=== PATIENT | male | born 1975 | race Caucasian/White ===

== ENCOUNTER 2021-03-06 23:15 | Emergency (ER) | payer OTHER ==
[~2021-03-06] VITALS: Ht 177.8 cm; Wt 99.8 kg
[2021-03-06 23:25] VITALS: BP_SYST 105
[2021-03-07 00:41] LABS: HEMATOCRIT 47.3 % (36-54); HEMOGLOBIN 15.5 g/dL (14.0-18.0); MEAN CORPUSCULAR HEMOGLOBIN 32 pg (27-31); MEAN CORPUSCULAR HGB CONC 33 % (32-36); MEAN CORPUSCULAR VOLUME 98 fL (79.0-98.0); PLATELET COUNT (AUTO) 222 K/uL (130-430); RED BLOOD CELL COUNT(AUTO) 4.82 MIL/uL (4.2-6.2); RED CELL DISTRIBUTION WIDTH 15.2 % (9.0-15.0); WHITE BLOOD COUNT (AUTO) 3.7 K/uL (4.8-10.8)
[2021-03-07 00:44] LABS: CALCIUM 7.9 mg/dL (8.4-11.0); CREATININE 0.93 mg/dL (0.55-1.30)
[2021-03-07 00:51] LABS: ALBUMIN 3.8 g/dL (3.4-4.8); TOTAL BILIRUBIN 0.2 mg/dL (0.0-1.0)
[2021-03-07 01:17] LABS: ATYPICAL LYMPHOCYTES % 3 % (0-0); BASOPHILS % (MANUAL) 0 % (0-2); EOSINOPHILS % (MANUAL) 3 % (0-7); LYMPHOCYTES % (MANUAL) 30 % (20-46); MONOCYTES % (MANUAL) 9 % (0-11)
[2021-03-07 02:27] VITALS: BP_SYST 138
== END 2021-03-07 02:27 | disposition short-term general hospital (02) ==
LOC: SED 23:15
DX: G93.40 Encephalopathy, unspecified (principal); F10.229 Alcohol dependence with intoxication, unspecified; Y90.8 Blood alcohol level of 240 mg/100 ml or more; Z20.822 Contact with and (suspected) exposure to COVID-19
CPT/HCPCS: 36415; 70450; 72125; 76376; 80053; 82550; 85007; 85027; 87426; 93005; 99285; G0482

== ENCOUNTER 2021-04-28 07:08 | Inpatient (IN) | payer OTHER, SELFPAY ==
[~2021-04-28] VITALS: Ht 175.3 cm; Wt 112.9 kg
[2021-04-28] VITALS (18 sets, daily range): BP systolic 94–135
--- NOTE | 2021-04-28 07:10 | NUR ---
Placed in room 7 . Placed on front desk monitor, blood pressure machine and pulse oximeter. To gown for exam. Side rails up.
--- NOTE | 2021-04-28 07:13 | NUR ---
ER at bedside examining patient.
--- NOTE | 2021-04-28 07:20 | NUR ---
PT BIB [facility] DUE TO HIS CALLING 911. PER EMS, STATES THAT SHE THOUGHT HE WAS DRINKING WATER ALL NIGHT, BUT SHE LATER FOUND OUT IT WAS VODKA. PT IS ASLEEP NOW AND SEEMS COMFORTABLE, BUT IS VERY DIFFICULT TO AROUSE. PT IS ON 4L NC WITH A SAT OF 92%.
[2021-04-28 07:38] LABS: BASOPHILS % (AUTO) 0.3 % (0.0-2.0); EOSINOPHILS # (AUTO) 0.1 K/uL (0.0-0.4); EOSINOPHILS % (AUTO) 1.7 % (0.0-4.0); HEMATOCRIT 46.1 % (36-54); HEMOGLOBIN 15.3 g/dL (14.0-18.0); LYMPHOCYTES # (AUTO) 1.7 K/uL (1.0-5.5); LYMPHOCYTES % (AUTO) 22.4 % (20.5-51.5); MEAN CORPUSCULAR HEMOGLOBIN 32 pg (27-31); MEAN CORPUSCULAR HGB CONC 33 % (32-36); MEAN CORPUSCULAR VOLUME 95 fL (79.0-98.0); MONOCYTES # (AUTO) 0.4 K/uL (0.0-1.0); MONOCYTES % (AUTO) 4.9 % (1.7-9.3); NEUTROPHILS # (AUTO) 5.4 K/uL (1.8-7.7); NEUTROPHILS % (AUTO) 70.7 % (40.0-70.0); PLATELET COUNT (AUTO) 191 K/uL (130-430); RED BLOOD CELL COUNT(AUTO) 4.83 MIL/uL (4.2-6.2); RED CELL DISTRIBUTION WIDTH 16.2 % (9.0-15.0); WHITE BLOOD COUNT (AUTO) 7.7 K/uL (4.8-10.8)
[2021-04-28 07:55] LABS: CALCIUM 7.6 mg/dL (8.4-11.0); CREATININE 0.78 mg/dL (0.55-1.30); POTASSIUM 3.9 mmol/L (3.5-5.1)
[2021-04-28 07:56] LABS: INR 0.9 (0.80-1.20); PROTHROMBIN TIME 9.4 SECS (9.5-12.5)
[2021-04-28 08:02] LABS: ALBUMIN 3.6 g/dL (3.4-4.8); TOTAL BILIRUBIN 0.2 mg/dL (0.0-1.0)
[2021-04-28] MEDS ORDERED: FOLIC ACID 1 MG, THIAMINE HCL 100 MG, MAGNESIUM SULFATE 1 GM, MVI 10 ML in NACL 0.9% 1,... IV ONE (08:15)
[2021-04-28 08:21] LABS: BILIRUBIN,URINE NEGATIVE (NEGATIVE); BLOOD, URINE 1+ (NEGATIVE); COLOR,URINE YELLOW (YELLOW); GLUCOSE,URINE NEGATIVE (NEGATIVE); KETONES,URINE NEGATIVE (NEGATIVE); LEUKOCYTE ESTERASE ,URINE NEGATIVE (NEGATIVE); NITRITE, URINE NEGATIVE (NEGATIVE); PH,URINE 5.5 (5.0-8.0); PROTEIN URINE 2+ (NEGATIVE); UROBILINOGEN,URINE 0.2 (0.2-1.0)
[2021-04-28 08:24] LABS: CLARITY/URINE HAZY (CLEAR)
[2021-04-28 08:34] LABS: BARBITURATE, URINE NEGATIVE (NEG <=200); BENZODIAZEPINE, URINE POSITIVE (NEG <=150); CANNABINOID, URINE NEGATIVE (NEG <=50); COCAINE, URINE NEGATIVE (NEG <=150); METHAMPHETAMINES SCREEN,URINE NEGATIVE (NEG <=500); OPIATE, URINE NEGATIVE (NEG <=100); PHENCYCLIDINE SCREEN,URINE NEGATIVE (NEG <=25); UR TRICYCLIC ANTIDEPRESSANTS NEGATIVE (NEG <=300); URINE AMPHETAMINE NEGATIVE (NEG <=500); URINE METHADONE NEGATIVE (NEG <=200); URINE OXYCODONE SCREEN NEGATIVE (NEG <=100); URINE PROPOXYPHENE SCREEN NEGATIVE (NEG <=300)
--- NOTE | 2021-04-28 08:40 | NUR ---
Called pharmacy to request Banana Bag, will call me back
[2021-04-28 08:41] LABS: BACTERIA,URINE None Seen /HPF (None Seen); URINE AMORPHOUS URATE 3+ /HPF (None Seen); WBC,URINE 0-3 /HPF (0-3)
[2021-04-28 08:42] LABS: HYALINE CASTS, URINE 0-10 /LPF (None Seen)
[2021-04-28] MEDS ORDERED: THIAMINE HCL 100 MG, MAGNESIUM SULFATE 1 GM in NS 100 ML IV ONE (09:00)
[2021-04-28] MEDS ORDERED: FOLIC ACID 1 MG, MVI 10 ML in NACL 0.9% 1,000 ML IV ONE (09:00)
--- NOTE | 2021-04-28 09:00 | NUR ---
Radiology at bedside for CXR
[2021-04-28] MEDS ORDERED: POTASSIUM CHLORIDE 20 MEQ TAB.PRT.SR PO PRN (09:45)
[2021-04-28] MEDS ORDERED: ONDANSETRON HCL 4 MG/2 ML VIAL IVP PRN (09:45)
[2021-04-28] MEDS ORDERED: MUPIROCIN 2% TOPICAL OINTMENT 22 GM NS PRN (09:45)
[2021-04-28] MEDS ORDERED: DOCUSATE SODIUM 100 MG CAPSULE PO PRN (09:45)
[2021-04-28] MEDS ORDERED: MAGNESIUM SULFATE 50 ML IV PRN (09:45)
--- NOTE | 2021-04-28 09:45 | NUR ---
Dr. Medley at bedside
--- NOTE | 2021-04-28 10:50 | NUR ---
Patient will be admitted to care of DR SCOTT. Admitted to ICU. Will go to room 3. Belongings list completed. Complete and up to date summary report printed. SBAR report to be given at bedside with opportunity for questions.
--- NOTE | 2021-04-28 11:00 | NUR ---
ADMISSION NOTE Received patient from ER via mary, received report from Itzel ESCOBAR. Patient admitted with diagnosis of acute respiratory failure. Patient oriented to hospital routine, call light, toileting and safety-patient verbalized understanding.
[2021-04-28] MEDS: D5NS 1,000 ML IV SCH ×2 (14:21→21:47)
--- NOTE | 2021-04-28 14:40 | NUR ---
patient intubated by Dr. Forrest. Other orders are given.
[2021-04-28] MEDS ORDERED: NALOXONE HCL 0.4 MG/ML AMP (NARCAN) IVP PRN (14:45)
[2021-04-28] MEDS ORDERED: ROCURONIUM BROMIDE 10 MG/ML (ZEMURON) IV ONE (15:20)
[2021-04-28] MEDS ORDERED: ETOMIDATE 20 MG/ 10 ML VIAL (AMIDATE) IVP ONE (15:20)
--- NOTE | 2021-04-28 15:28 | NUR ---
CONSULTATION PAGED/CALLED Reason for Consultation: [] RESPIRATORY FAILURE Person Who was Notified: [] DIRECTLY PAGED DR OGLESBY Consulting Physician: [] DR OGLESBY Data Technician Specialty: [] PULMO Ordering Physician: [] DR SCOTT
[2021-04-28] MEDS ORDERED: PANTOPRAZOLE SODIUM 40 MG/VIAL (PROTONIX) IVP ONE (15:30)
[2021-04-28] MEDS: MIDAZOLAM IN NACL,ISO-OSMOT/PF 100 ML IV PRN (15:36)
[2021-04-28] MEDS: MORPHINE SULFATE IN 0.9 % NACL 100 ML IV PRN (15:43)
[2021-04-28 15:54] LABS: INR 0.9 (0.80-1.20); PROTHROMBIN TIME 9.6 SECS (9.5-12.5)
[2021-04-28 15:58] LABS: THYROID STIMULATING HORMONE 2.23 uIu/mL (0.36-3.74)
[2021-04-28] MEDS: PIPERACILLIN/TAZO 3.375/DEX-IS 50 ML IV SCH (16:56)
--- NOTE | 2021-04-28 17:00 | NUR ---
Patient has a chest xray. Tolerated without distress.
[2021-04-28] MEDS ORDERED: SODIUM BICARBONATE 8.4% VIAL 50 MEQ/50 ML VIAL INJ ONE (17:15)
[2021-04-28] MEDS ORDERED: NACL 0.9% 1,000 ML IV ONE (17:30)
--- NOTE | 2021-04-28 18:20 | NUR ---
patient has been taken to CT scan and back. patient tolerated without distress.
--- NOTE | 2021-04-28 19:40 | NUR ---
Pt report received. Pt resting quietly, sedated, VSS. Mechanically ventilated with ETT size 7.5, secure at 25 to lip line. Vent settings: A/C, 16, 500, 70%, 5. NGT to left nare, newly placed PICC to RUE, awaiting x-ray confirmation of placement prior to use. PIV LHA with D5NS infusing at 150 mL/hr. Morphine and Versed Drips to PIV LFA both infusing at 2 mg/hr. PIV sites patent and secure, no s/s infiltration. F/C patent and secure with yellow urine to bag.
--- NOTE | 2021-04-28 19:55 | NUR ---
X-ray at bedside. Pt moving extremities and reaching for ETT. Versed and Morphine drip rates both increased to 3 mg/hr. Pt becomes relaxed. PICC line placement confirmed by PICC Line Nurse and NGT placement confirmed. Both okay to use.
--- NOTE | 2021-04-28 20:10 | NUR ---
Pt's sister present to bedside. Updated on POC.
--- NOTE | 2021-04-28 20:25 | NUR ---
Pt's at bedside. Updated on plan of care.
--- NOTE | 2021-04-28 20:45 | NUR ---
Pt reaching for ETT. Morphine and Versed drips both increased to 4 mg/hr. Pt becomes relaxed.
--- NOTE | 2021-04-28 20:50 | NUR ---
Pt reaches for ETT. Versed and Morphine drips increased to 5 mg/hr and Ativan 2 mg IVP administered. Pt becomes calm and VSS. Seizure pads to Bilat side rails. Family members still present to bedside, no needs verbalized.
[2021-04-28] MEDS: LORazepam 2 MG/ML VIAL IVP PRN (20:51)
[2021-04-28] MEDS: ENOXAPARIN SODIUM 40 MG/0.4 ML SYRINGE SUBCUT SCH (20:52)
--- NOTE | 2021-04-28 21:17 | NUR ---
Family members leave unit. states to call her ([phone]) at any time should there be any changes in pts condition.
--- NOTE | 2021-04-28 22:15 | NUR ---
DR. TYLER THURMAN MD AT [phone], DR. ALEE GONZALEZ BREAKFAST SERVER ANSWERED THE PHONE.
[2021-04-29] VITALS (29 sets, daily range): BP systolic 88–140
--- NOTE | 2021-04-29 | NUR ---
Bilateral Soft Wrist restraints applied per order of Dr. Lanier.
--- NOTE | 2021-04-29 00:10 | NUR ---
B/P 87/47. Morphine rate decreased to 3 mg/hr.
[2021-04-29] MEDS: PIPERACILLIN/TAZO 3.375/DEX-IS 50 ML IV SCH ×4 (00:15→18:11)
--- NOTE | 2021-04-29 00:30 | NUR ---
B/P 86/46. Morphine drip decreased to 2 mg/hr.
[2021-04-29] MEDS: LORazepam 2 MG/ML VIAL IVP PRN ×3 (02:42→11:34)
--- NOTE | 2021-04-29 02:45 | NUR ---
Pt waking up, squirming in bed, HR 122, B/P 112/56. Soft wrist restraints and seizure precautions remain in place. Ativan 2 mg given IVP, Versed drip increased to 5 mg/hr and Morphine drip increased to 3 mg/hr.
[2021-04-29] MEDS ORDERED: MORPHINE SULFATE 10 MG/ML VIAL ONE ×2 (03:13→03:17)
--- NOTE | 2021-04-29 03:30 | NUR ---
Pt moving BUE and squirming in bed. Bilateral soft wrist restraints in place. B/P 112/56. Morphine drip increased to 4 mg/hr, Versed drip increased to 6 mg/hr.
[2021-04-29] MEDS: MORPHINE SULFATE IN 0.9 % NACL 100 ML IV PRN ×3 (03:32→18:55)
[2021-04-29] MEDS: D5NS 1,000 ML IV SCH ×3 (03:44→18:49)
--- NOTE | 2021-04-29 03:51 | NUR ---
Pt's sister, Marly, called to provide her phone number ([phone]).
--- NOTE | 2021-04-29 05:05 | NUR ---
Pt's calls, status update provided. She states that she will come visit around 0830 this AM.
--- NOTE | 2021-04-29 05:19 | NUR ---
Pt moving BUE. Morphine drip increased to 5 mg/hr.
--- NOTE | 2021-04-29 06:20 | NUR ---
Pt moving BUE and opening eyes. Pt reassured. Versed and morphine drips both increased to 7 mg/hr. VSS.
[2021-04-29 06:46] LABS: BASOPHILS % (AUTO) 0.3 % (0.0-2.0); EOSINOPHILS # (AUTO) 0.1 K/uL (0.0-0.4); EOSINOPHILS % (AUTO) 2.3 % (0.0-4.0); HEMATOCRIT 34.4 % (36-54); HEMOGLOBIN 11.6 g/dL (14.0-18.0); LYMPHOCYTES # (AUTO) 0.7 K/uL (1.0-5.5); LYMPHOCYTES % (AUTO) 12.3 % (20.5-51.5); MEAN CORPUSCULAR HEMOGLOBIN 32 pg (27-31); MEAN CORPUSCULAR HGB CONC 34 % (32-36); MEAN CORPUSCULAR VOLUME 95 fL (79.0-98.0); MONOCYTES # (AUTO) 0.7 K/uL (0.0-1.0); MONOCYTES % (AUTO) 12.2 % (1.7-9.3); NEUTROPHILS % (AUTO) 72.9 % (40.0-70.0); PLATELET COUNT (AUTO) 113 K/uL (130-430); RED CELL DISTRIBUTION WIDTH 15.5 % (9.0-15.0); WHITE BLOOD COUNT (AUTO) 5.4 K/uL (4.8-10.8)
[2021-04-29 06:51] LABS: CREATININE 0.79 mg/dL (0.55-1.30); POTASSIUM 3.4 mmol/L (3.5-5.1)
--- NOTE | 2021-04-29 07:00 | NUR ---
Pt moving BUE, HR 129. Morphine and Versed drips both increased to 7 mg/hr.
--- NOTE | 2021-04-29 07:30 | NUR ---
Opening Received report from endorsing RN. Pt intubated on ventilator with sedation but also arousable and attempting to pull lines. Bilateral wrist restraints in place for safety. NGT in place, clamped. Bansal in place draining alyssa urine to gravity.
[2021-04-29] MEDS: MIDAZOLAM IN NACL,ISO-OSMOT/PF 100 ML IV PRN ×2 (07:59→16:38)
[2021-04-29 08:01] LABS: CALCIUM 6.7 mg/dL (8.4-11.0)
[2021-04-29] MEDS ORDERED: FOLIC ACID 1 MG, THIAMINE HCL 100 MG, MAGNESIUM SULFATE 1 GM, MVI 10 ML in NACL 0.9% 1,... IV SCH (09:00)
[2021-04-29] MEDS: PANTOPRAZOLE SODIUM 40 MG/VIAL (PROTONIX) IVP SCH (09:14)
[2021-04-29] MEDS ORDERED: CALCIUM CARBONATE 650 MG TABLET PO SCH (10:00)
[2021-04-29] MEDS ORDERED: CALCIUM 500 MG/TAB PO ONE (10:30)
--- NOTE | 2021-04-29 10:40 | NUR ---
ANGEL note: Faxed clinical info to [facility] # [phone]. The pt was intubated in ICU yesterday at 1440 pm, comatose, not stable for transfer.
[2021-04-29] MEDS: ACETAMINOPHEN 325 MG TABLET PO PRN (11:34)
--- NOTE | 2021-04-29 14:47 | NUR ---
Pt's at bedside, updated.
--- NOTE | 2021-04-29 16:32 | NUR ---
Dietitian Recommendations 1) Recommend Pivot @ 60 mL/hr with FWF of 160 ml Q4H, initiate at 10 mL/hr, advance by 10 mL Q6H, as tolerated. (this EN regimen provides 1440 mL total volume, 2160 kcals, 135 gm protein, 1093 mL free fluids, 960 mL in FWF, total fluids: 2053 mL) 2) the EN regimen above meets 94% of energy needs, 100% of protein needs and 99% of fluid needs KW, RD
--- NOTE | 2021-04-29 19:26 | NUR ---
Closing Endorsed plan of care to RN. Pt's sister at bedside visiting.
--- NOTE | 2021-04-29 19:30 | NUR ---
Opening note, Received report and assumed care. Family at bedside; information provided. Vent to ETT in place; tolerating vent setting on AC 16. Sedated with Versed infusing to AMINTA picc; patent. Bansal catheter in place and draining to gravity. will continue to monitor.
[2021-04-29] MEDS: ACETYLCYSTEINE 10% 4 ML VIAL (RT) INH SCH (20:15)
--- NOTE | 2021-04-29 21:15 | NUR ---
RT NOTES ASSISTED IN TRANSFERRING PT FOR A CT SCAN. PT BAGGED DURING TRANSFER WITH 100% FIO2 VIA AMBU BAG. NO SOB NOTED. PLACED BACK ON VENT IN ICU @ 2125. 7.5 ETT SECURE AT 25 CM LIP LINE. SX'D MOD AMOUNT PINKISH WHITE SPUTUM.
--- NOTE | 2021-04-29 21:15 | NUR ---
Going to CT via gurney; polygraph technician and RT at bedside. Patient connected to portable monitor and O2 monitoring. Continuing with sedation with Versed. Will continue to monitor as per unit protocol.
--- NOTE | 2021-04-29 21:40 | NUR ---
Back from CT. Patient tolerated procedure well. Waiting for results.
[2021-04-29] MEDS: ENOXAPARIN SODIUM 40 MG/0.4 ML SYRINGE SUBCUT SCH (22:30)
[2021-04-30] VITALS (30 sets, daily range): BP systolic 89–142
[2021-04-30] MEDS: PIPERACILLIN/TAZO 3.375/DEX-IS 50 ML IV SCH ×4 (00:36→18:35)
[2021-04-30] MEDS: D5NS 1,000 ML IV SCH ×4 (01:30→20:34)
[2021-04-30 06:40] LABS: BASOPHILS % (AUTO) 0.3 % (0.0-2.0); EOSINOPHILS # (AUTO) 0.2 K/uL (0.0-0.4); EOSINOPHILS % (AUTO) 2.2 % (0.0-4.0); HEMATOCRIT 32.1 % (36-54); HEMOGLOBIN 10.7 g/dL (14.0-18.0); LYMPHOCYTES # (AUTO) 0.6 K/uL (1.0-5.5); LYMPHOCYTES % (AUTO) 8.1 % (20.5-51.5); MEAN CORPUSCULAR HEMOGLOBIN 32 pg (27-31); MEAN CORPUSCULAR HGB CONC 33 % (32-36); MEAN CORPUSCULAR VOLUME 97 fL (79.0-98.0); MONOCYTES # (AUTO) 0.4 K/uL (0.0-1.0); MONOCYTES % (AUTO) 5.3 % (1.7-9.3); NEUTROPHILS # (AUTO) 6.7 K/uL (1.8-7.7); NEUTROPHILS % (AUTO) 84.1 % (40.0-70.0); PLATELET COUNT (AUTO) 87 K/uL (130-430); RED BLOOD CELL COUNT(AUTO) 3.31 MIL/uL (4.2-6.2); RED CELL DISTRIBUTION WIDTH 16.1 % (9.0-15.0)
[2021-04-30 07:06] LABS: CALCIUM 7.6 mg/dL (8.4-11.0); CREATININE 0.71 mg/dL (0.55-1.30); POTASSIUM 3.8 mmol/L (3.5-5.1)
--- NOTE | 2021-04-30 07:22 | NUR ---
Received patient and report from shift stacker nurse. Patient in bed with side rails x 3 up. Call light with in reach.
[2021-04-30] MEDS: ACETYLCYSTEINE 10% 4 ML VIAL (RT) INH SCH ×4 (07:50→19:45)
--- NOTE | 2021-04-30 08:20 | NUR ---
MD Lanier at bedside assessing patient.
[2021-04-30] MEDS ORDERED: MAGNESIUM SULFATE 1 GM/2 ML VIAL ONE (09:59)
[2021-04-30] MEDS: THIAMINE HCL 100 MG, MAGNESIUM SULFATE 1 GM in NS 100 ML IV SCH (09:59)
[2021-04-30] MEDS ORDERED: THIAMINE HCL 100 MG/ML VIAL ONE (09:59)
[2021-04-30] MEDS: FOLIC ACID 1 MG, MVI 10 ML in NACL 0.9% 1,000 ML IV SCH (09:59)
[2021-04-30] MEDS ORDERED: MVI 10 ML VIAL IV ONE (10:00)
[2021-04-30] MEDS: CALCIUM 500 MG/TAB PO SCH (10:00)
[2021-04-30] MEDS: PANTOPRAZOLE SODIUM 40 MG/VIAL (PROTONIX) IVP SCH (10:00)
[2021-04-30] MEDS: PROPOFOL DRIP 100 ML IV PRN ×2 (11:46→18:35)
[2021-04-30] MEDS: MIDAZOLAM IN NACL,ISO-OSMOT/PF 100 ML IV PRN (11:47)
[2021-04-30] MEDS: MORPHINE SULFATE IN 0.9 % NACL 100 ML IV PRN (11:48)
--- NOTE | 2021-04-30 12:29 | NUR ---
DR. VICKERS PER DR VICKERS PLACE GI CONSULT FOR DR. ROSENTHAL. WILL PLACE ORDER.
--- NOTE | 2021-04-30 12:30 | NUR ---
PAGED DR. ROSENTHAL FOR CONSULT PAGED EXCHANGE PENDING RETURN CALL
--- NOTE | 2021-04-30 12:41 | NUR ---
BRIAN FROM [facility] [place] [place]: SPOKE WITH BRIAN AT [facility] [place] [place], HE STATED THAT THE [facility] [place] [place] [facility] SPECTROMETRY SPECIALIST HAS REQUESTED THE CONTACT INFORMATION FOR DR. OGLESBY, INFORMATION GIVEN TO BRIAN KAHN [facility] [place] [place]. Addendum: 04/30/21 at 1243 by Raquel Snider RN WRONG CHART
--- NOTE | 2021-04-30 16:22 | NUR ---
MD Forrest at bedside assessing patient, informed wants to communicate with MD. MD Forrest gave update to .
[2021-04-30 16:38] LABS: PROTHROMBIN TIME 10.5 SECS (9.5-12.5)
--- NOTE | 2021-04-30 17:20 | NUR ---
MD Calvillo at bedside assessing patient, gave update per request.
--- NOTE | 2021-04-30 18:54 | NUR ---
Lab called for critical Fibrinogen 567, made MD Forrest aware via phone.
--- NOTE | 2021-04-30 19:10 | NUR ---
OPENING NOTE: RECEIVED REPORT BY RN USING SBAR REPORTING. ALL CARE ASSUMED.
[2021-04-30] MEDS: ENOXAPARIN SODIUM 40 MG/0.4 ML SYRINGE SUBCUT SCH (20:34)
--- NOTE | 2021-04-30 21:00 | NUR ---
AT BEDSIDE: PTS AT BEDSIDE, UPDATED ON PTS STATUS. ANSWERED ALL AVAILABLE QUESTIONS.
[2021-05-01] VITALS (38 sets, daily range): BP systolic 99–170
[2021-05-01] MEDS: PIPERACILLIN/TAZO 3.375/DEX-IS 50 ML IV SCH ×4 (00:35→17:50)
--- NOTE | 2021-05-01 03:57 | NUR ---
: SPOKE TO VIA TELEPHONE, UPDATED ON PTS STATUS.
[2021-05-01] MEDS: D5NS 1,000 ML IV SCH (05:42)
[2021-05-01 06:41] LABS: BASOPHILS % (AUTO) 0.4 % (0.0-2.0); EOSINOPHILS # (AUTO) 0.6 K/uL (0.0-0.4); EOSINOPHILS % (AUTO) 7.4 % (0.0-4.0); HEMATOCRIT 30.8 % (36-54); HEMOGLOBIN 10.3 g/dL (14.0-18.0); LYMPHOCYTES # (AUTO) 0.6 K/uL (1.0-5.5); LYMPHOCYTES % (AUTO) 7.7 % (20.5-51.5); MEAN CORPUSCULAR HEMOGLOBIN 33 pg (27-31); MEAN CORPUSCULAR HGB CONC 34 % (32-36); MEAN CORPUSCULAR VOLUME 97 fL (79.0-98.0); MONOCYTES # (AUTO) 0.3 K/uL (0.0-1.0); MONOCYTES % (AUTO) 3.9 % (1.7-9.3); NEUTROPHILS # (AUTO) 6.3 K/uL (1.8-7.7); NEUTROPHILS % (AUTO) 80.6 % (40.0-70.0); PLATELET COUNT (AUTO) 97 K/uL (130-430); RED BLOOD CELL COUNT(AUTO) 3.18 MIL/uL (4.2-6.2); RED CELL DISTRIBUTION WIDTH 15.4 % (9.0-15.0); WHITE BLOOD COUNT (AUTO) 7.9 K/uL (4.8-10.8)
[2021-05-01 06:59] LABS: ALBUMIN 2.1 g/dL (3.4-4.8); BILIRUBIN,DIRECT 0.2 mg/dL (0.0-0.3); CALCIUM 7.9 mg/dL (8.4-11.0); CREATININE 0.59 mg/dL (0.55-1.30); POTASSIUM 3.5 mmol/L (3.5-5.1); TOTAL BILIRUBIN 0.9 mg/dL (0.0-1.0)
--- NOTE | 2021-05-01 07:50 | NUR ---
DR ROSS: DR ROSS AT BEDSIDE, UPDATED ON PTS STATUS, NEW ORDERS ACKNOWLEDGED AND CARRIED OUT.
[2021-05-01] MEDS: ACETYLCYSTEINE 10% 4 ML VIAL (RT) INH SCH ×4 (08:25→19:21)
--- NOTE | 2021-05-01 08:30 | NUR ---
DR VICKERS: DR VICKERS AT BEDSIDE, UPDATED ON PTS STATUS, NO NEW ORDERS AT THIS TIME.
[2021-05-01] MEDS: DOCUSATE SODIUM 100 MG/10 ML UDC PO SCH ×2 (08:35→20:46)
[2021-05-01] MEDS: PANTOPRAZOLE SODIUM 40 MG/VIAL (PROTONIX) IVP SCH (08:35)
[2021-05-01] MEDS: CALCIUM 500 MG/TAB PO SCH (08:35)
[2021-05-01] MEDS: THIAMINE HCL 100 MG, MAGNESIUM SULFATE 1 GM in NS 100 ML IV SCH (08:36)
[2021-05-01] MEDS: FOLIC ACID 1 MG, MVI 10 ML in NACL 0.9% 1,000 ML IV SCH (08:36)
--- NOTE | 2021-05-01 09:30 | NUR ---
: SPOKE WITH PTS , UPDATED ON PTS STATUS AND ANSWERED ALL QUESTIONS.
[2021-05-01] MEDS: MORPHINE SULFATE IN 0.9 % NACL 100 ML IV PRN (12:56)
--- NOTE | 2021-05-01 13:30 | NUR ---
ENDORSEMENT Patient received from LUZ PETTY. VSS. Patient tolerating current vent settings. No signs of acute distress noted. Safety precautions in place, call light within reach. Will continue to monitor.
--- NOTE | 2021-05-01 13:54 | NUR ---
REPORT GIVEN TO RN USING SBAR REPORTING. ALL SAFETY PRECAUTIONS ENFORCED.
--- NOTE | 2021-05-01 14:15 | NUR ---
Nutrition F/U Admitting Diagnosis: acute respiratory failure Medical History Comment: PMH: alcohol abuse, no recent surgeries per H&P Per MD notes: metabolic encephalopathy, acute ETOH intoxication, hx of alcohol abuse, possible benzodiazipine abuse, acute respiratory failure. SARS-CoV-2 Ag Rapid 04/28 negative Subjective Information: Nutrition consult for NPO received 04/30/21 1502. Pt remains in ICU, intubated on vent, comatose. RN at bedside providing care during RD rounds to unit and was not able to s/w RN. Per EMR review, abdomen is soft and distended w/ active bowel sounds, no BM since admission and EN support was ordered this morning. Pt on banana bag and propofol. Current EN regimen provides: 864kcal, 54gm protein and 884ml free water daily which does not meet 50% of estimated needs. An increase in EN infusion rate is warranted. Current Diet Order/Nutrition Support: Vital AF 1.2 at 30ml/hr, FWF 50 Q4H via NGT (ordered 05/01 0754) Pertinent Medications: Colace, Banana bag, Os-imani, Propofol at 20.33ml/hr (536 kcal/day) Pertinent Labs: 05/01 BG 112H, BUN 3L, Cre 0.59WNL, 04/28: HgbA1c 6.1H Height: 5 feet 9.00 inches Weight: 249 pounds/ 112.969945 kilograms Body Mass Index: 36.77 kg/m2 [employer]/Adjusted Body Weight: 160 lbs, adj body wt: 182.3 lbs Skin Integrity Comment: Oli: 14, per RN notes Lateral L side dry scab/scratches. Non-pitting generalized edema. Estimated Energy Expenditure (kcals/day) 2294 kcal/day PSU 2003b equation for ventilated pts Estimated Protein Required (g/day) 109-145 g/day (1.5-2 g/kg IBW for respiratory failure) Estimated Fluid Required (l/day) 6306-7359 mL/day (25-30 adj BW) or per MD Problem/Etiology/Signs/Symptoms Inadequate oral intake related to pt unable to meet nutrition needs via PO as evidenced by pt intubated, sedated, on vent, NPO status. (*resolved, now on EN support) Altered nutrition related labs r/t endocrine dysfunction AEB elevated BG, A1c. (*new) Expected Outcomes/Goals Monitor EN tolerance and intake w/ goal of pt meeting more than 75% of estimated nutritional needs, labs trending WNL, normal GI function, skin integrity/wt maintenance. Dietitian Recommendations *Recommend: slowly increase EN rate to new goal. *Recommend: Vital AF 1.2 at 60ml/hr (goal rate), FWF 120ml Q4H via NGT Provides (w/ propofol): 2264 kcal, 108gm protein and 1888ml free water daily. Meets: 98% of estimated calorie needs and 99% of lower end of estimated protein needs. Follow Up High Risk: F/U in 2-3days
--- NOTE | 2021-05-01 14:30 | NUR ---
Dietitian Recommendations *Recommend: slowly increase EN rate to new goal. *Recommend: Vital AF 1.2 at 60ml/hr (goal rate), FWF 120ml Q4H via NGT Provides (w/ propofol): 2264 kcal, 108gm protein and 1888ml free water daily. Meets: 98% of estimated calorie needs and 99% of lower end of estimated protein needs. Please see Nutrition F/U note for details. CTARACHO, RD
[2021-05-01] MEDS: PROPOFOL DRIP 100 ML IV PRN ×2 (14:45→18:03)
[2021-05-01] MEDS: MIDAZOLAM IN NACL,ISO-OSMOT/PF 100 ML IV PRN (14:46)
--- NOTE | 2021-05-01 15:52 | NUR ---
BP Spoke to Dr. Yolande MD informed that patients would like to be updated and that patients BP has been in the 150's systolic. Lisinopril ordered per MD. Will carry out order.
[2021-05-01] MEDS ORDERED: lisinopriL 20 MG TABLET PO ONE (16:00)
--- NOTE | 2021-05-01 16:30 | NUR ---
DR. MOSLEY HERE TO SEE PATIENT, ORDERS TO INCREASE TUBEFEEDING TO GOAL OF 50ML/HR. WILL CARRY OUT ORDER.
--- NOTE | 2021-05-01 19:32 | NUR ---
ENDORSEMENT Pt care endorsed to nightshift RN using nursing SBAR.
--- NOTE | 2021-05-01 20:00 | NUR ---
Patient is sedated, not awake or alert, does respond to stimuli by flinching or moving head towards stimuli. Patient on vent, tolerating it well. Vent settings: AC 46, TV 500, FiO2 45%, peep 5. Patient on propofol 10, versed 3, morphine 4mg, banana bag 42ml/hr and TKO on AMINTA PICC line. Bansal cath is present, hung below bladder level and draining clear yellow urine. L NGT noted, secured, verified placement, residual is 5ml, flushing well. Patient is on restrains, checked skin integrity, its intact. General edema noted on all extremities. I got a full report from am nurse Parris. Bed is low, locked, 2 side rails are up and call light is within reach.
[2021-05-01] MEDS: ENOXAPARIN SODIUM 40 MG/0.4 ML SYRINGE SUBCUT SCH (20:49)
[2021-05-02] VITALS (30 sets, daily range): BP systolic 111–189
--- NOTE | 2021-05-02 00:03 | NUR ---
Patient VSS, was at bedside earlier this evening. No changes on condition of patient. Patient was turned and repositioned. Bed is low, locked, 2 side rails are up and call light is within reach.
[2021-05-02] MEDS: PIPERACILLIN/TAZO 3.375/DEX-IS 50 ML IV SCH ×5 (01:05→23:48)
[2021-05-02] MEDS: PROPOFOL DRIP 100 ML IV PRN (05:29)
[2021-05-02 06:19] LABS: BASOPHILS % (AUTO) 0.2 % (0.0-2.0); EOSINOPHILS # (AUTO) 0.3 K/uL (0.0-0.4); HEMATOCRIT 33.5 % (36-54); LYMPHOCYTES # (AUTO) 0.6 K/uL (1.0-5.5); MONOCYTES # (AUTO) 0.3 K/uL (0.0-1.0)
[2021-05-02 06:28] LABS: CALCIUM 8.3 mg/dL (8.4-11.0); CREATININE 0.71 mg/dL (0.55-1.30); POTASSIUM 3.5 mmol/L (3.5-5.1)
[2021-05-02 06:31] LABS: EOSINOPHILS % (AUTO) 6.6 % (0.0-4.0); LYMPHOCYTES % (AUTO) 11.1 % (20.5-51.5); MEAN CORPUSCULAR HEMOGLOBIN 32 pg (27-31); MEAN CORPUSCULAR HGB CONC 33 % (32-36); MEAN CORPUSCULAR VOLUME 98 fL (79.0-98.0); MONOCYTES % (AUTO) 5.5 % (1.7-9.3); NEUTROPHILS % (AUTO) 76.6 % (40.0-70.0); PLATELET COUNT (AUTO) 113 K/uL (130-430); RED BLOOD CELL COUNT(AUTO) 3.41 MIL/uL (4.2-6.2); RED CELL DISTRIBUTION WIDTH 15.4 % (9.0-15.0); WHITE BLOOD COUNT (AUTO) 5.2 K/uL (4.8-10.8)
[2021-05-02] MEDS: ACETYLCYSTEINE 10% 4 ML VIAL (RT) INH SCH ×3 (07:00→20:01)
[2021-05-02] MEDS: DOCUSATE SODIUM 100 MG/10 ML UDC PO SCH ×2 (08:30→22:08)
[2021-05-02] MEDS: PANTOPRAZOLE SODIUM 40 MG/VIAL (PROTONIX) IVP SCH (08:30)
[2021-05-02] MEDS: lisinopriL 20 MG TABLET PO SCH (08:32)
[2021-05-02] MEDS: CALCIUM 500 MG/TAB PO SCH (08:33)
[2021-05-02] MEDS: FOLIC ACID 1 MG, MVI 10 ML in NACL 0.9% 1,000 ML IV SCH (09:09)
[2021-05-02] MEDS: THIAMINE HCL 100 MG, MAGNESIUM SULFATE 1 GM in NS 100 ML IV SCH (09:10)
[2021-05-02] MEDS ORDERED: COMMUNICATION ORDER XX ONE ×2 (11:45→13:45)
[2021-05-02] MEDS: IPRATROPIUM/ALBUTEROL SULFATE 3 ML AMPUL.NEB (DUONEB) INH SCH ×2 (13:23→20:01)
--- NOTE | 2021-05-02 15:58 | NUR ---
Informed by MT that pts BP is elevated at 214/112. Bedside RN made aware. Pt is agitated and bucking vent. Suctioned for small amount of secretions. Diprivan/Morphine and Versed infusing. Precedex started at 0.2 mcgs/kg/min, diprivan infusing at 10 mcgs/kg/min, morphine at 1mg/hr and increased to 2mg/hr, Versed infusing at 3 mg/hr and increased to 5 mg.hr. 02 sats 93% and HR 71.
[2021-05-02] MEDS: DEXMEDETOMIDINE HCL 200 MCG in NS 48 ML IV PRN (16:08)
--- NOTE | 2021-05-02 16:15 | NUR ---
Bp 200/102. Precedex increased to 0.3 mcgs/kg/min.
[2021-05-02] MEDS: MORPHINE SULFATE IN 0.9 % NACL 100 ML IV PRN (16:19)
--- NOTE | 2021-05-02 16:30 | NUR ---
BP 160/81 with precedex at 0.3mcgs, morphine at 3mg.he and versed at 5 m/hr. Pt calmer and resting comfortably at this time. 02 sats 92%. HOB up.
--- NOTE | 2021-05-02 16:56 | NUR ---
Kasi goins. SPoke with Varsha at [phone].
--- NOTE | 2021-05-02 19:25 | NUR ---
OPENING NOTE Received SBAR report from off coming RN for continuity of care. Pt laying in bed, sedated and intubated on ventilator. Versed gtt infusing @ 3 mcg/kg/min, Morphine gtt @ 4 mg/hr, Precedex gtt @ 0.4 mcg/kg/min. NG tube in place with tube feeding infusing. Bansal catheter in place and draining to gravity. Seizure precautions in place. Bed locked and in lowest position, safety precautions in place.
[2021-05-02] MEDS: ENOXAPARIN SODIUM 40 MG/0.4 ML SYRINGE SUBCUT SCH (21:00)
--- NOTE | 2021-05-02 21:54 | NUR ---
PAGED FOR ORDERS DIALED: [phone] SPOKE TO:
--- NOTE | 2021-05-02 21:57 | NUR ---
Paged Dr. Medley to inform of high BP. Dr. Mccullough placed new orders.
[2021-05-02] MEDS ORDERED: hydrALAZINE HCL 20 MG/ML VIAL ONE (22:09)
[2021-05-02] MEDS: hydrALAZINE HCL 20 MG/ML VIAL IVP PRN (22:09)
[2021-05-03] VITALS (31 sets, daily range): BP systolic 109–188
[2021-05-03] MEDS: ACETYLCYSTEINE 10% 4 ML VIAL (RT) INH SCH ×4 (02:10→18:51)
[2021-05-03] MEDS: IPRATROPIUM/ALBUTEROL SULFATE 3 ML AMPUL.NEB (DUONEB) INH SCH ×4 (02:10→18:51)
--- NOTE | 2021-05-03 05:00 | NUR ---
CHG bath and full linen change provided, pt tolerated well.
[2021-05-03 05:38] LABS: CALCIUM 8.6 mg/dL (8.4-11.0); CREATININE 0.62 mg/dL (0.55-1.30); POTASSIUM 3.6 mmol/L (3.5-5.1)
[2021-05-03] MEDS: PIPERACILLIN/TAZO 3.375/DEX-IS 50 ML IV SCH ×4 (06:08→23:50)
[2021-05-03 06:25] LABS: BASOPHILS % (AUTO) 0.2 % (0.0-2.0); EOSINOPHILS # (AUTO) 0.2 K/uL (0.0-0.4); EOSINOPHILS % (AUTO) 6.1 % (0.0-4.0); HEMATOCRIT 35.4 % (36-54); HEMOGLOBIN 11.8 g/dL (14.0-18.0); LYMPHOCYTES # (AUTO) 0.6 K/uL (1.0-5.5); LYMPHOCYTES % (AUTO) 14.2 % (20.5-51.5); MEAN CORPUSCULAR HEMOGLOBIN 32 pg (27-31); MEAN CORPUSCULAR HGB CONC 33 % (32-36); MEAN CORPUSCULAR VOLUME 96 fL (79.0-98.0); MONOCYTES # (AUTO) 0.5 K/uL (0.0-1.0); MONOCYTES % (AUTO) 11.8 % (1.7-9.3); NEUTROPHILS # (AUTO) 2.7 K/uL (1.8-7.7); NEUTROPHILS % (AUTO) 67.7 % (40.0-70.0); PLATELET COUNT (AUTO) 113 K/uL (130-430); RED CELL DISTRIBUTION WIDTH 15.2 % (9.0-15.0)
--- NOTE | 2021-05-03 07:30 | NUR ---
Opening Note Received plan of care via sbar from endorsing RN.
--- NOTE | 2021-05-03 07:30 | NUR ---
CLOSING NOTE Endorsed SBAR report to oncoming RN for continuity of care. Pt laying in bed, intubated on ventilator. No s/s of distress noted. Morphine gtt infusing @ 6 mg/hr, Precedex gtt infusing @ 0.4 mcg/kg/min. Seizure precautions in place. Bed locked and in lowest position, safety precautions in place.
--- NOTE | 2021-05-03 08:00 | NUR ---
RT NOTES Per ABG results and no improvement on saturation despite HHN tx, FIO2 to 0.60. Rn made aware. Saturation 93%
[2021-05-03] MEDS: DOCUSATE SODIUM 100 MG/10 ML UDC PO SCH ×2 (09:07→21:22)
[2021-05-03] MEDS: CALCIUM 500 MG/TAB PO SCH (09:08)
[2021-05-03] MEDS: PANTOPRAZOLE SODIUM 40 MG/VIAL (PROTONIX) IVP SCH (09:08)
[2021-05-03] MEDS: lisinopriL 20 MG TABLET PO SCH (09:08)
[2021-05-03] MEDS: amLODIPine BESYLATE 10 MG TABLET GT SCH (09:09)
[2021-05-03] MEDS: FOLIC ACID 1 MG, MVI 10 ML in NACL 0.9% 1,000 ML IV SCH (09:10)
[2021-05-03] MEDS: THIAMINE HCL 100 MG, MAGNESIUM SULFATE 1 GM in NS 100 ML IV SCH (09:10)
--- NOTE | 2021-05-03 10:03 | NUR ---
Dr. Benítez at bedside. Provided patient update. to make vent settings to Pressure Control AC 16/PS 20/Peep 7/60% FIO2. ABG ordered for 1130.
--- NOTE | 2021-05-03 10:05 | NUR ---
RT NOTES Found vent settings changed to PC 20 PEEP 7 I-Time 1.[address] Benítez. Dr is at bedside aware pt saturation is 87%. Dr changed to PEEP 8 FIO2 to 0.65. Stated that "there will be a v/q mismatch" due to change to PC settings and may take up to 30 minutes to show improvement.
--- NOTE | 2021-05-03 12:11 | NUR ---
RT NOTES FIO2 to 0.[address] cardona/abg result. Will monitor pt. Will notify RN.
[2021-05-03] MEDS: hydrALAZINE HCL 20 MG/ML VIAL IVP PRN ×3 (12:52→20:31)
[2021-05-03] MEDS: LORazepam 2 MG/ML VIAL IVP PRN ×3 (13:12→22:56)
[2021-05-03] MEDS: DEXMEDETOMIDINE HCL 200 MCG in NS 48 ML IV PRN ×4 (15:07→21:19)
[2021-05-03] MEDS: MORPHINE SULFATE IN 0.9 % NACL 100 ML IV PRN (15:27)
--- NOTE | 2021-05-03 18:30 | NUR ---
Witnessed patient HR increased and sound of vent alarm for bed 3. Quickly went to room and found patient self extubated. Patient was placed on a mask 4 litters and stating 94 with resp of 21. RT called along with 2 RNs and MD paged. Patient reposition and patient was tachypneic, symmetrical breathing and even. Patient denies difficulty breathing.
--- NOTE | 2021-05-03 18:40 | NUR ---
RT NOTES CALLED TO BEDSIDE DUE TO PT SELF EXTUBATION @ 1830. ARRIVED AT BEDSIDE @1835. PT ON NASAL CANNULA 5LPM. SPO2 96%. HR 126. RR 30. PLACED ON HIGH FLOW NASAL CANNULA PER DR ROSS. NO SOB NOTED.
--- NOTE | 2021-05-03 18:41 | NUR ---
PAGEMeena RAJAN FOR ORDERS DIALED: [phone] SPOKE TO: CUCA
--- NOTE | 2021-05-03 18:42 | NUR ---
Received call from Dr. Benítez and provided patient update. Received orders to continue the precedex and to place patient on high flow. Reported patient tachycardia rate of 147 and received order for Metropolol 2.5 mg IVP once for heart rate greater than 130.
[2021-05-03] MEDS ORDERED: METOPROLOL TARTRATE 5 MG/5 ML VIAL IVP ONE (19:30)
[2021-05-03] MEDS ORDERED: METOPROLOL TARTRATE 5 MG/5 ML VIAL ONE (19:55)
--- NOTE | 2021-05-03 20:00 | NUR ---
LETHARGIC. SPEECH SLIGHTLY SLURRED. CONFUSED. REORIENTED TO TIME, PLACE AND CIRCUMSTANCE. INSTRUCTED PT NOT TO PULL ON ANYTHING. ON O2 HIGH FLOW AT 30 LITERS/MIN, FIO2 50%. NGT FEEDING RESTARTED WITH JEVITY 1.2 AT 50CC/HR. RESIDUAL CHECK 0. BOBO CATH PRESENT DRAINING CLEAR YELLOW URINE TO GRAVITY. SINUS TACH. METOPROLOL 2.5 MG IVP GIVEN FOR HR 140 AND BP 170/124. JOHANA SOFT WRIST RESTRAINTS ON FOR SAFETY.
--- NOTE | 2021-05-03 20:00 | NUR ---
HIGH ALERT NOTE: Called Dr. ROSS back at 1930 identified within the medical roster to verify physician authenticity.
--- NOTE | 2021-05-03 20:15 | NUR ---
ALEX CALLED IN, INFORMED THAT PT SELF EXTUBATED AT 1825. UPDATED ON STATUS.
--- NOTE | 2021-05-03 20:30 | NUR ---
APRESOLINE 10 MG IVP GIVEN FOR BP 170/124.
--- NOTE | 2021-05-03 20:45 | NUR ---
ALEX HERE VISITING. PT CONFUSED.
[2021-05-03] MEDS: ENOXAPARIN SODIUM 40 MG/0.4 ML SYRINGE SUBCUT SCH (21:23)
--- NOTE | 2021-05-03 21:50 | NUR ---
ALEX LEFT FOR HOME.
--- NOTE | 2021-05-03 22:30 | NUR ---
PT FOUND OOB, DISROBED, STANDING AT BEDSIDE. PULLED OUT NGT . ASSISTED TO SIT IN CHAIR BY 3 RN'S. CLEANED. COMPLETE LINEN CHANGED. ASSISTED BACK TO BED. RESISTIVE. NONE COMPLIANT. NEEDED PRODDING AND INSTRUCTIONS. ATIVAN 2 MG IVP GIVEN. TUCKED BACK IN BED AND MONITORS AND IV LINES REATTACHED. PRECEDEX INCREASED TO 1.5 MCG/KG/HR.
[2021-05-04] VITALS (24 sets, daily range): BP systolic 114–201
--- NOTE | 2021-05-04 | NUR ---
CALLING OUT NAMES LOUDLY. CONFUSED. HALLUCINATING. REPEATEDLY STATING "SEBAS BENDER 'S GONNA PERFORM HERE". TAGGING ON SOFT WRIST RESTRAINTS. ATTEMPTING TO SIT UP.
[2021-05-04] MEDS: hydrALAZINE HCL 20 MG/ML VIAL IVP PRN ×3 (00:29→08:38)
--- NOTE | 2021-05-04 00:30 | NUR ---
APRESOLINE 10 MG IVP GIVEN FOR BP 209/136.
[2021-05-04] MEDS: DEXMEDETOMIDINE HCL 200 MCG in NS 48 ML IV PRN ×7 (00:49→12:07)
[2021-05-04] MEDS: IPRATROPIUM/ALBUTEROL SULFATE 3 ML AMPUL.NEB (DUONEB) INH SCH ×4 (01:00→19:00)
--- NOTE | 2021-05-04 03:00 | NUR ---
DOZES ON AND OFF. RESTLESS AT TIMES. HALLUCINATES. ATIVAN 2 MG IVP GIVEN FOR RESTLESSNESS. PRECEDEX DRIP DECREASED TO 1 MCG/KG/HR.
[2021-05-04] MEDS: LORazepam 2 MG/ML VIAL IVP PRN (03:02)
--- NOTE | 2021-05-04 03:30 | NUR ---
CHG BATH GIVEN. ORAL CARE, RAMÓN-CARE, BACK CARE, SKIN CARE. PARTIAL LINEN CHANGE. DOES NOT ASSIST WITH TURNING. GIANNA PROC WELL.
--- NOTE | 2021-05-04 04:00 | NUR ---
PULSES PALPABLE. ALEX CALLED, UPDATED ON CONDITION.
--- NOTE | 2021-05-04 04:30 | NUR ---
APRESOLINE 10 MG IVP GIVEN FOR BP 166/109.
[2021-05-04] MEDS: PIPERACILLIN/TAZO 3.375/DEX-IS 50 ML IV SCH ×3 (05:38→17:11)
--- NOTE | 2021-05-04 05:59 | NUR ---
PAGED FOR ORDERS DIALED: [phone] SPOKE TO:
--- NOTE | 2021-05-04 06:05 | NUR ---
DR. CODY GONZALEZ MADE AWARE THAT PT IS EXTREMELY AGITATED AND CONTINUES TO TRY TO GET OUT OF BED/PULL OUT LINES. ORDER RECEIVED TO INCREASE FREQUENCY OF ATIVAN 2 MG TO Q2H.
[2021-05-04] MEDS ORDERED: LORazepam 2 MG/ML VIAL ONE ×2 (06:07→08:23)
[2021-05-04] MEDS ORDERED: LORazepam 2 MG/ML VIAL IVP PRN (06:15)
--- NOTE | 2021-05-04 06:30 | NUR ---
BOUTS OF RESTLESSNESS AND CONFUSION. NEEDS FREQUENT INTERVENTION. REMAINS IN GUARDED CONDITION.
[2021-05-04 06:43] LABS: BASOPHILS % (AUTO) 0.1 % (0.0-2.0); EOSINOPHILS % (AUTO) 0.2 % (0.0-4.0); HEMATOCRIT 36.2 % (36-54); HEMOGLOBIN 12.3 g/dL (14.0-18.0); LYMPHOCYTES # (AUTO) 0.3 K/uL (1.0-5.5); LYMPHOCYTES % (AUTO) 4.7 % (20.5-51.5); MEAN CORPUSCULAR HEMOGLOBIN 32 pg (27-31); MEAN CORPUSCULAR HGB CONC 34 % (32-36); MEAN CORPUSCULAR VOLUME 94 fL (79.0-98.0); MONOCYTES # (AUTO) 0.7 K/uL (0.0-1.0); MONOCYTES % (AUTO) 9.8 % (1.7-9.3); NEUTROPHILS # (AUTO) 6.2 K/uL (1.8-7.7); NEUTROPHILS % (AUTO) 85.2 % (40.0-70.0); PLATELET COUNT (AUTO) 131 K/uL (130-430); RED BLOOD CELL COUNT(AUTO) 3.87 MIL/uL (4.2-6.2); RED CELL DISTRIBUTION WIDTH 15.6 % (9.0-15.0); WHITE BLOOD COUNT (AUTO) 7.3 K/uL (4.8-10.8)
[2021-05-04 07:03] LABS: CALCIUM 9.1 mg/dL (8.4-11.0); CREATININE 0.57 mg/dL (0.55-1.30)
[2021-05-04] MEDS ORDERED: POTASSIUM CHLORIDE 40 MEQ, LIDOCAINE JECT 2% PF 100 MG 50 MG in NS 250 ML IV ONE (08:30)
--- NOTE | 2021-05-04 08:45 | NUR ---
Dr. Benítez at bedside. Provided patient update. Discussed current treatment. Received order for a swallow evaluation as tolerated and to insert NG tube if necessary. MD to place orders for increase HR and BP.
[2021-05-04] MEDS: FOLIC ACID 1 MG, MVI 10 ML in NACL 0.9% 1,000 ML IV SCH (08:50)
[2021-05-04] MEDS: THIAMINE HCL 100 MG, MAGNESIUM SULFATE 1 GM in NS 100 ML IV SCH (08:52)
[2021-05-04] MEDS: CALCIUM 500 MG/TAB PO SCH (09:00)
[2021-05-04] MEDS: amLODIPine BESYLATE 10 MG TABLET GT SCH (09:00)
[2021-05-04] MEDS: PANTOPRAZOLE SODIUM 40 MG/VIAL (PROTONIX) IVP SCH (09:00)
[2021-05-04] MEDS: lisinopriL 20 MG TABLET PO SCH (09:00)
[2021-05-04] MEDS: DOCUSATE SODIUM 100 MG/10 ML UDC PO SCH ×2 (09:00→21:14)
[2021-05-04] MEDS: niCARdipine 25 MG in D5W 240 ML IV PRN ×4 (09:48→23:07)
[2021-05-04] MEDS: D5NS 1,000 ML IV SCH ×2 (10:10→21:05)
--- NOTE | 2021-05-04 11:29 | NUR ---
Nutrition F/U Admitting Diagnosis: acute respiratory failure Medical History Comment: PMH: alcohol abuse, no recent surgeries per H&P Per MD notes: metabolic encephalopathy, acute ETOH intoxication, hx of alcohol abuse, possible benzodiazipine abuse, acute respiratory failure. SARS-CoV-2 Ag Rapid 04/28 negative Subjective Information: Pt was seen in ICU, family at bedside. Per MD notes, pt self extubated 05/03 now on HFNC 30L, extremely agitated and combative. Pt was placed in restraints. NGT was also pulled out and now pt wont allow NGT re-inserted. Plan for swallow eval once pt is more stable. Weaning trials per pulmonology. Per EMR review, abdomen is distended, w/ hypoactive bowel sounds. Oli scale: 13. Per RN notes, Lateral Left side w/ dry scab and AMINTA w/ blister. RD s/w pt's primary RN who reported that propofol is now off, a/w swallow eval. No current nutrition support/diet order. Pt is not meeting nutrient needs. Current Diet Order/Nutrition Support: Vital AF 1.2 at 30ml/hr, FWF 50 Q4H via NGT (ordered 05/02) Pertinent Medications: Colace, Banana bag, Os-imani, protonix, Lovenox, K-dur, Zofran Pertinent Labs: 05/04 BG 138H, BUN 7L, Cre 0.57WNL, 04/28: HgbA1c 6.1H Height: 5 feet 9.00 inches Weight: 249 pounds/ 112.520567 kilograms(04/29) --stable Body Mass Index: 36.77 kg/m2 [employer]/Adjusted Body Weight: 160 lbs, adj body wt: 182.3 lbs Skin Integrity Comment: Oli: 13, per RN notes Lateral L side dry scab, blister to AMINTA. 1+pitting generalized edema. NEW Estimated Energy Expenditure (kcals/day) 9441-0667 kcal/day (25-30 kcal/kg IBW for maintenance/obesity) Estimated Protein Required (g/day) 109-145 g/day (1.5-2 g/kg IBW for respiratory failure) Estimated Fluid Required (l/day) 6390-0402 mL/day (25-30 adj BW) or per MD Problem/Etiology/Signs/Symptoms Inadequate oral intake related to pt unable to meet nutrition needs via PO as evidenced by pt intubated, sedated, on vent, NPO status. (*ongoing, no nutrition support/intake as of 05/04) Altered nutrition related labs r/t endocrine dysfunction AEB elevated BG, A1c. (*ongoing) Expected Outcomes/Goals Monitor provision/initiation of nutrition and intake w/ goal of pt meeting more than 75% of estimated nutritional needs, labs trending WNL, normal GI function, skin integrity/wt maintenance. Dietitian Recommendations * Recommend: keep pt NPO. Discontinue EN order. * Recommend: swallow eval. Diet advancement when hemodynamically stable. * If pt fails swallow eval, recommend NGT re-insertion and to resume previous EN order. Follow Up High Risk: F/U in 2-3days
--- NOTE | 2021-05-04 11:36 | NUR ---
Dietitian Recommendations * Recommend: keep pt NPO. Discontinue EN order. * Recommend: swallow eval. Diet advancement when hemodynamically stable. * If pt fails swallow eval, recommend NGT re-insertion and to resume previous EN order. Please see Nutrition F/U note for details. ANIVAL HAYDEN
--- NOTE | 2021-05-04 13:46 | NUR ---
Called speech therapist Melissa at [phone], Left message on voice mail
[2021-05-04] MEDS: ACETYLCYSTEINE 10% 4 ML VIAL (RT) INH SCH ×3 (15:37→19:00)
--- NOTE | 2021-05-04 20:00 | NUR ---
AAOX4. IN NO APPARENT DISTRESS. VSS. DENIES PAIN. ON O2 AT 2L/MIN/NC. BREATH SOUNDS WITH SOME ADVENTITIOUS SOUNDS. BOWEL SOUNDS (+). PULSES PALPABLE. SKIN W/D. COLOR SATISFACTORY. HOB UP TO COMFORT. SIDE RAILS UP. CALL LIGHTS WITHIN REACH. BOBO CATH PATENT DRAINING CLEAR MARLENE URINE TO GRAVITY. AMINTA PICC LINE DRSG D/I. ON BANANA BAG AT 42 VV/HR. ON CARDENE DRIP AT 10 MG/HR.
--- NOTE | 2021-05-04 20:30 | NUR ---
SISTER NORMA MAGANA.
[2021-05-04] MEDS: ENOXAPARIN SODIUM 40 MG/0.4 ML SYRINGE SUBCUT SCH (21:15)
--- NOTE | 2021-05-04 22:00 | NUR ---
PT ABLE TO REPOSITION SELF. HS CARE GIVEN.
--- NOTE | 2021-05-04 22:10 | NUR ---
ALEX HERE, VISITING PT. SISTER NORMA LEFT FOR HOME. PT WITH OCCASIONAL SEMI PRODUCTIVE COUGH, SWALLOWS EXPECTORATION.
[2021-05-04] MEDS ORDERED: niCARdipine 2.5 MG/ML, 10 ML VIAL (CARDENE) IV ONE (23:15)
[2021-05-05] VITALS (19 sets, daily range): BP systolic 129–167
--- NOTE | 2021-05-05 | NUR ---
AWAKE. TYLENOL 325 MG PO GIVEN FOR TEMP 100.3, TEMPORAL ARTERY SCAN.
[2021-05-05] MEDS: ACETAMINOPHEN 325 MG TABLET PO PRN (00:06)
[2021-05-05] MEDS: ACETYLCYSTEINE 10% 4 ML VIAL (RT) INH SCH ×4 (01:17→20:03)
[2021-05-05] MEDS: IPRATROPIUM/ALBUTEROL SULFATE 3 ML AMPUL.NEB (DUONEB) INH SCH ×4 (01:17→20:03)
[2021-05-05] MEDS: niCARdipine 25 MG in D5W 240 ML IV PRN ×4 (01:59→09:54)
--- NOTE | 2021-05-05 02:00 | NUR ---
RESTING. AT BEDSIDE. TEMP 100.5, TEMPORAL ARTERY SCAN, COOLING MEASURES WITH ICE PACKS.
--- NOTE | 2021-05-05 03:00 | NUR ---
ALEX LEFT FOR HOME.
[2021-05-05] MEDS ORDERED: niCARdipine 2.5 MG/ML, 10 ML VIAL (CARDENE) IV ONE (03:48)
--- NOTE | 2021-05-05 04:00 | NUR ---
DOZES ON AND OFF. ICE PACKS FOR TEMP 100.0 TEMPORAL ARTERY SCAN, TYLENOL NOT YET DUE. HOB UP TO COMFORT.
--- NOTE | 2021-05-05 05:00 | NUR ---
APRESOLINE 10 MG IVP GIVEN FOR BP 167/101.
[2021-05-05] MEDS: hydrALAZINE HCL 20 MG/ML VIAL IVP PRN ×2 (05:10→18:10)
[2021-05-05 05:29] LABS: BASOPHILS % (AUTO) 0.2 % (0.0-2.0); EOSINOPHILS # (AUTO) 0.1 K/uL (0.0-0.4); EOSINOPHILS % (AUTO) 1.7 % (0.0-4.0); HEMATOCRIT 36.1 % (36-54); HEMOGLOBIN 12.2 g/dL (14.0-18.0); LYMPHOCYTES # (AUTO) 0.6 K/uL (1.0-5.5); LYMPHOCYTES % (AUTO) 10.2 % (20.5-51.5); MEAN CORPUSCULAR HEMOGLOBIN 32 pg (27-31); MEAN CORPUSCULAR HGB CONC 34 % (32-36); MEAN CORPUSCULAR VOLUME 95 fL (79.0-98.0); MONOCYTES # (AUTO) 0.7 K/uL (0.0-1.0); MONOCYTES % (AUTO) 13.6 % (1.7-9.3); NEUTROPHILS % (AUTO) 74.3 % (40.0-70.0); PLATELET COUNT (AUTO) 173 K/uL (130-430); RED BLOOD CELL COUNT(AUTO) 3.81 MIL/uL (4.2-6.2); RED CELL DISTRIBUTION WIDTH 15.9 % (9.0-15.0); WHITE BLOOD COUNT (AUTO) 5.4 K/uL (4.8-10.8)
[2021-05-05] MEDS: PIPERACILLIN/TAZO 3.375/DEX-IS 50 ML IV SCH ×3 (05:54→12:03)
--- NOTE | 2021-05-05 06:00 | NUR ---
SLEPT INTERMITTENTLY. UO GOOD. DENIES SOB, DISTRESS, PAIN. REMAINS IN GUARDED CONDITION.
[2021-05-05 07:25] LABS: CALCIUM 8.7 mg/dL (8.4-11.0); CREATININE 0.63 mg/dL (0.55-1.30); POTASSIUM 3.1 mmol/L (3.5-5.1)
[2021-05-05] MEDS: D5NS 1,000 ML IV SCH ×2 (08:23→14:30)
[2021-05-05] MEDS: PANTOPRAZOLE SODIUM 40 MG/VIAL (PROTONIX) IVP SCH (08:34)
[2021-05-05] MEDS: FOLIC ACID 1 MG, MVI 10 ML in NACL 0.9% 1,000 ML IV SCH (08:36)
[2021-05-05] MEDS: THIAMINE HCL 100 MG, MAGNESIUM SULFATE 1 GM in NS 100 ML IV SCH (08:51)
--- NOTE | 2021-05-05 09:28 | NUR ---
RN notes: received order for transfer to Telemetry.patient on telemetry status now.waiting for bed availability, continue monitoring.
[2021-05-05] MEDS ORDERED: chlordiazePOXIDE HCL 25 MG CAPSULE PO ONE (09:30)
[2021-05-05] MEDS: amLODIPine BESYLATE 10 MG TABLET GT SCH (09:55)
[2021-05-05] MEDS: lisinopriL 20 MG TABLET PO SCH (09:56)
[2021-05-05] MEDS: CALCIUM 500 MG/TAB PO SCH (09:56)
[2021-05-05] MEDS: DOCUSATE SODIUM 100 MG/10 ML UDC PO SCH (09:58)
[2021-05-05] MEDS: POTASSIUM CHLORIDE 40 MEQ, LIDOCAINE JECT 2% PF 100 MG 50 MG in NS 250 ML IV ONE ×2 (10:04→10:38)
--- NOTE | 2021-05-05 10:08 | NUR ---
Stability for transfer to [place] sent to [facility]. [phone]
[2021-05-05] MEDS ORDERED: METOPROLOL TARTRATE 25 MG TABLET PO ONE (10:30)
[2021-05-05 11:08] LABS: PHOSPHORUS 3.3 mg/dL (2.7-4.5)
--- NOTE | 2021-05-05 14:56 | NUR ---
S.T. SWALLOW EVAL CONFIRMED W/ RAUL RUCKER THAT S.T. REFERRAL WAS FOR SWALLOW EVAL. SWALLOW EVAL COMPLETED. PT PRESENTS W/ FUNCTIONAL OROPHARYNGEAL SWALLOW W/ NO S/S OF ASPIRATION. REC: CONTINUE CURRENT REGULAR TEXTURED DIET. THIN LIQUIDS OK. NURSE ELLIOTT NOTIFIED.
[2021-05-05] MEDS ORDERED: chlordiazePOXIDE HCL 25 MG CAPSULE PO SCH (15:00)
--- NOTE | 2021-05-05 17:08 | NUR ---
Called Kasi Bernal and pedro Fernandez and provided patient update via sbar. Allowed for questions.
--- NOTE | 2021-05-05 17:27 | NUR ---
RN notes: removed Bansal catheter. urine output is 960 ml.
[2021-05-05] MEDS ORDERED: METOPROLOL TARTRATE 25 MG TABLET PO SCH (18:00)
--- NOTE | 2021-05-05 19:35 | NUR ---
NOTES RECEIVED BEDSIDE REPORT FROM ICU NURSE CHANCE, PATIENT DOWNGRADED, ALDER PATIENT AND IS FOR TRANSFER TO [facility] JUST WAITING FOR TRANSPORT. DISCHARGE PACKET ALREADY DONE, REPORT ALREADY GIVEN TO LUZ CARLIN AND PATIENT GOING TO ROOM [address] GARCIA THE ATTENDING DOCTOR. NEEDS ATTENDING TO. PATIENT RESTING COMFORTABLY AT THIS TIME, NO COMPLAINTS. WILL CONTINUE TO MONITOR.
--- NOTE | 2021-05-05 20:20 | NUR ---
NOTES PATIENT TRANSFERRED TO [facility] ORDERED WITH STABLE VITAL SIGNS, BP-134/96, R-17, O2 SAT 95% ON ROOM AIR AND T-98.3. ALL NEEDS ATTENDED TO. SAFETY MEASURES MAINTAINED. DENIES ANY PAIN AND DISCOMFORT AT THIS TIME.
== END 2021-05-05 20:20 | disposition short-term general hospital (02) | DRG 207 ==
LOC: SED 07:08 → SIC 08:59 → STU 05-05 19:18
PROVIDERS: ADMIT General Practice; ATTEND General Practice
PROC: 0BH17EZ Insertion of Endotracheal Airway into Trachea, Via Natural or Artificial Opening (ICD-10-PCS; principal; 2021-04-28)
PROC: 5A1955Z Respiratory Ventilation, Greater than 96 Consecutive Hours (ICD-10-PCS; 2021-04-28)
PROC: 02HV33Z Insertion of Infusion Device into Superior Vena Cava, Percutaneous Approach (ICD-10-PCS; 2021-05-05)
DX: J80 Acute respiratory distress syndrome (principal); J69.0 Pneumonitis due to inhalation of food and vomit; G93.41 Metabolic encephalopathy; E87.0 Hyperosmolality and hypernatremia; K92.2 Gastrointestinal hemorrhage, unspecified; F10.131 Alcohol abuse with withdrawal delirium; D64.9 Anemia, unspecified; D69.59 Other secondary thrombocytopenia; E66.9 Obesity, unspecified; E83.42 Hypomagnesemia; E83.51 Hypocalcemia; F10.129 Alcohol abuse with intoxication, unspecified; E87.6 Hypokalemia; Z20.822 Contact with and (suspected) exposure to COVID-19; K70.9 Alcoholic liver disease, unspecified; Y90.8 Blood alcohol level of 240 mg/100 ml or more; Z68.36 Body mass index [BMI] 36.0-36.9, adult
CPT/HCPCS: 36415; 36600; 70450-TC; 71045; 71250-TC; 76376; 76700-TC; 80048; 80053; 80076; 80307; 81000; 82803-TC; 83036; 83690; 83735; 84100; 84443; 85025; 85049-TC; 85379; 85384; 85610-TC; 85730-TC; 87040-TC; 87070-TC; 87081; 87205-TC; 92610-GN; 93005; 94003; 94640; 96365; 96366; 96368; 97116-GP; 99291; C9113; G0482; J0360; J1650; J2060; J2270; J2543; J2704; J3411; J3475; J3480; J3490; J7030; J7050; J7060; J7608